=== PATIENT | female | born 1955 | race Caucasian/White ===

== ENCOUNTER 2016-05-25 19:42 | Emergency (ER) | payer OTHER ==
[~2016-05-25] VITALS: Ht 167.6 cm; Wt 68.0 kg
[~2016-05-25 19:42] MED LIST: ACTIVELLA 1 MG-1 TAB PO; ASPIRIN81 M1 PO; AUGMENTIN 875 M1 TAB PO; CHOLESTYRAMINE P4 GM PO; CIPRO500 MG PO; LOVASTATIN10 MG PO; MULTIVITAMIN1 SGL PO; VICODIN 500 MG-1 TAB PO
[2016-05-25 20:05] LABS: BILIRUBIN NEGATIVE (NEGATIVE); BLOOD 3+ (NEGATIVE); CLARITY SL CLOUDY (CLEAR); COLOR YELLOW (YELLOW); GLUCOSE NEGATIVE (NEGATIVE); KETONE NEGATIVE (NEGATIVE); LEUKO ESTERASE 1+ (NEGATIVE); NITRITE POSITIVE (NEGATIVE); PROTEIN NEGATIVE (NEGATIVE); SPECIFIC GRAVITY 1.015 (1.005-1.030); UROBILINOGEN 0.2 E.U./dl (0.2-1.0)
[2016-05-25 20:18] LABS: RBC 21-30 rbc/hpf (0-2); URINE REFLEX COMMENT YES (NO); WBC 16-20 wbc/hpf (0-5)
[2016-05-25] MEDS ORDERED: PYRIDIUM200 M1 PO (20:23)
[2016-05-25] MEDS ORDERED: CIPRO500 MG PO (20:23)
== END 2016-05-25 20:49 | disposition home or self-care (01) ==
LOC: ED 19:42
PROVIDERS: Emergency Medicine Emergency Medical Services
DX: N39.0 Urinary tract infection, site not specified (principal); R31.9 Hematuria, unspecified; I25.10 Atherosclerotic heart disease of native coronary artery without angina pectoris; F17.200 Nicotine dependence, unspecified, uncomplicated; Z98.51 Tubal ligation status; Z90.49 Acquired absence of other specified parts of digestive tract; Z79.899 Other long term (current) drug therapy

== ENCOUNTER 2016-09-06 09:19 | Emergency (ER) | payer OTHER ==
[~2016-09-06] VITALS: Ht 162.5 cm; Wt 70.3 kg
[~2016-09-06 09:19] MED LIST changes: +PYRIDIUM200 M1 PO
[2016-09-06 09:50] LABS: BILIRUBIN 1+ (NEGATIVE); BLOOD 3+ (NEGATIVE); CLARITY CLOUDY (CLEAR); COLOR YELLOW (YELLOW); GLUCOSE NEGATIVE (NEGATIVE); KETONE NEGATIVE (NEGATIVE); LEUKO ESTERASE 2+ (NEGATIVE); NITRITE NEGATIVE (NEGATIVE); PH 5.5 (5.0-9.0); PROTEIN 1+ (NEGATIVE); SPECIFIC GRAVITY 1.025 (1.005-1.030); UROBILINOGEN 0.2 E.U./dl (0.2-1.0)
[2016-09-06 10:05] LABS: URINE REFLEX COMMENT YES (NO); WBC TNTC wbc/hpf (0-5)
[2016-09-06 10:06] LABS: BACTERIA 3+; EPITHELIAL CELLS 15-20; RBC 31-40 rbc/hpf (0-2)
[2016-09-06] MEDS ORDERED: AMINOPHYLLIN200 MG PO (10:15)
== END 2016-09-06 10:15 ==
LOC: ED 09:19
PROVIDERS: Registered Nurse
DX: N39.0 Urinary tract infection, site not specified (principal); F17.200 Nicotine dependence, unspecified, uncomplicated

== ENCOUNTER 2018-10-01 12:42 | Emergency (ER) | payer OTHER ==
[~2018-10-01] VITALS: Ht 167.6 cm; Wt 81.6 kg
[~2018-10-01 12:42] MED LIST changes: +AMINOPHYLLIN200 MG PO
[2018-10-01 13:01] LABS: BILIRUBIN NEGATIVE (NEGATIVE); BLOOD 3+ (NEGATIVE); CLARITY SL CLOUDY (CLEAR); COLOR YELLOW (YELLOW); GLUCOSE NEGATIVE (NEGATIVE); KETONE NEGATIVE (NEGATIVE); LEUKO ESTERASE 2+ (NEGATIVE); NITRITE POSITIVE (NEGATIVE); PH 6.5 (5.0-9.0); SPECIFIC GRAVITY <= 1.005 (1.005-1.030)
[2018-10-01 13:14] LABS: BACTERIA 2+; RBC 21-30 rbc/hpf (0-2); WBC 51-100 wbc/hpf (0-5)
[2018-10-01] MEDS ORDERED: PYRIDIUM100 MG PO (13:33)
[2018-10-01] MEDS ORDERED: ZOFRAN4 MG PO (13:33)
[2018-10-01] MEDS ORDERED: CEPHALEXIN500 M1 PO (13:33)
== END 2018-10-01 13:40 | disposition home or self-care (01) ==
LOC: ED 12:42
PROVIDERS: Nurse Practitioner Family
DX: N39.0 Urinary tract infection, site not specified (principal); F17.200 Nicotine dependence, unspecified, uncomplicated; Z98.51 Tubal ligation status

== ENCOUNTER 2020-11-29 15:34 | Emergency (ER) | payer OTHER ==
[~2020-11-29] VITALS: Wt 81.6 kg
[~2020-11-29 15:34] MED LIST changes: +CEPHALEXIN500 M1 PO; +PYRIDIUM100 MG PO; +ZOFRAN4 MG PO
== END 2020-11-29 17:42 | disposition left against medical advice (07) ==
LOC: ED 15:34
DX: S61.215A Laceration without foreign body of left ring finger without damage to nail, initial encounter (principal); S61.217A Laceration without foreign body of left little finger without damage to nail, initial encounter; Z53.21 Procedure and treatment not carried out due to patient leaving prior to being seen by health care provider; W26.8XXA Contact with other sharp object(s), not elsewhere classified, initial encounter; Y93.89 Activity, other specified; Y92.89 Other specified places as the place of occurrence of the external cause; Y99.8 Other external cause status